=== PATIENT | female | born 1930 | race Caucasian/White ===

== ENCOUNTER 2016-09-11 09:35 | Outpatient (CLI) | payer MEDICARE ==
--- NOTE | 2016-09-11 19:15 | RAD ---
CHEST TWO VIEWS: Date: 09-11-16 Comparison: 10-08-15 done at [facility]. FINDINGS: The heart is borderline in size and no different than before. Arterial sclerotic change is seen in the aorta. The lungs are hyper expanded but clear. No lobar infiltrate or effusion was seen. Ther e might be some minor linear atelectasis in the costophrenic angles. Regarding the bones, the patient is quite osteoporotic. As a result, even significant fractures wou ld be missed. No gross rib fractures were indicated. There might be a mild compression of a mid th oracic vertebrae. Other imaging studies would be needed to see this better. IMPRESSION: Chronic changes but no definite acute findings. Small to medium sized rib fractures would not be se en on this study. POS: HOME
== END 2016-09-11 09:36 | disposition home or self-care (01) ==
LOC: BURRAD 09:35
PROVIDERS: ATTEND Physician Assistant
DX: R07.81 Pleurodynia (principal)
CPT/HCPCS: 71020

== ENCOUNTER 2018-09-02 13:19 | Outpatient (CLI) | payer MEDICARE ==
--- NOTE | 2018-09-02 21:36 | RAD ---
RIGHT RIBS AND PA CHEST: 09/02/2018 COMPARISON: Prior chest film from 09/11/2016. FINDINGS: The heart size SI stable and not enlarged. Calcific changes are seen in the aortic arch. The lungs are fully inflated and clear with no acute infiltrate or effusion seen. There is no pneumothorax. On the views of the ribs, there is a questionable line in the right 7th rib, near its lateral extent. If this correlates with the site of pain, there may be a small fracture here. Otherwise, the ribs appeared intact. Degenerative changes are prominent in the spine. IMPRESSION: Possible fracture at the distal end of the 7th rib. POS: HOME
== END 2018-09-02 13:20 | disposition home or self-care (01) ==
LOC: BURRAD 13:19
PROVIDERS: ATTEND Family Medicine
DX: R07.81 Pleurodynia (principal)